=== PATIENT | male | born 1995 | race African-American/Black ===

== ENCOUNTER 2017-11-28 09:46 | Emergency (ER) | payer SELFPAY ==
[2017-11-28] MEDS ORDERED: ASPIRIN 81 MG TABLET, CHEWABLE PO ONE (09:57)
--- NOTE | 2017-11-28 09:59 | ER Document Report ---
ED Medical Screen (RME) - General Chief Complaint: Chest Wall Pain Stated Complaint: CHEST DISCOMFORT Time Seen by Provider: 11/28/17 09:56 Notes: RAPID MEDICAL EVALUATION DISCLOSURE I have seen this patient as part of a Rapid Medical Evaluation and, if applicable, placed any initially appropriate orders. The patient will be seen and fully evaluated, including a full history and physical exam, by a provider ( in Main ED or Fast Track) when a room becomes available. 22-year-old male here with complaints of midsternal chest pain radiating through to the back with lightheadedness ongoing for the past 1 week. The pain has been constant but waxing and waning. 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 It is not worse with breathing. He has not tried anything for the symptoms. He does have a history of hypertension however does not take any medicine for it. He does use tobacco and cocaine. States his last cocaine use was earlier this year. Denies previous history of IA. EXAM CTAB RRR No chest wall TTP TRAVEL OUTSIDE OF THE [place] IN LAST 30 DAYS: No - Related Data Allergies/Adverse Reactions: No Known Allergies Allergy (Unverified 11/28/17 09:48) Physical Exam - Vital signs Vitals: Temp Pulse Resp BP Pulse Ox 98.5 F 71 20 149/78 H 99 11/28/17 09:51 11/28/17 09:51 11/28/17 09:51 11/28/17 09:51 11/28/17 09:51 Course - Vital Signs Vital signs: Temp Pulse Resp BP Pulse Ox 98.5 F 71 20 149/78 H 99 11/28/17 09:51 11/28/17 09:51 11/28/17 09:51 11/28/17 09:51 11/28/17 09:51
[2017-11-28 10:32] LABS: ABSOLUTE BASOPHILS # (AUTO) 0.1 10^3/uL (0.0-0.2); ABSOLUTE EOSINOPHILS # (AUTO) 0.4 10^3/uL (0.0-0.6); ABSOLUTE LYMPHOCYTES (AUTO) 2.2 10^3/uL (0.5-4.7); ABSOLUTE MONOCYTES (AUTO) 1.1 10^3/uL (0.1-1.4); ABSOLUTE NEUT (AUTO) 7.6 10^3/uL (1.7-8.2); BASOPHILS % (AUTO) 0.5 % (0-2); EOSINOPHILS % (AUTO) 3.9 % (0-6); HEMATOCRIT 48.1 % (37.9-51.0); HEMOGLOBIN 16.3 g/dL (13.5-17.0); MEAN CORPUSCULAR HEMOGLOBIN 29.9 pg (27.0-33.4); MEAN CORPUSCULAR HGB CONC 33.9 g/dL (32.0-36.0); MEAN CORPUSCULAR VOLUME 88 fl (80-97); MONOCYTES % (AUTO) 9.5 % (3-13); PLATELET COUNT 357 10^3/uL (150-450); RED BLOOD COUNT 5.46 10^6/uL (4.35-5.55); SEGMENTED NEUTROPHILS % (AUTO) 67.1 % (42-78); TOTAL CELLS COUNTED % (AUTO) 100 %; WHITE BLOOD COUNT 11.4 10^3/uL (4.0-10.5)
[2017-11-28 10:53] LABS: ANION GAP 15 (5-19); BLOOD UREA NITROGEN 12 mg/dL (7-20); CALCIUM 9.7 mg/dL (8.4-10.2); CARBON DIOXIDE 24 mmol/L (22-30); CHLORIDE 106 mmol/L (98-107); GLUCOSE 86 mg/dL (75-110); POTASSIUM 4.3 mmol/L (3.6-5.0)
--- NOTE | 2017-11-28 10:59 | RADIOLOGY REPORT (SQ) ---
EXAM DESCRIPTION: CHEST 2 VIEWS COMPLETED DATE/TIME: 11/28/2017 10:19 am REASON FOR STUDY: CP lightheaded COMPARISON: None. EXAM PARAMETERS: NUMBER OF VIEWS: two views TECHNIQUE: Digital Frontal and Lateral radiographic views of the chest acquired. RADIATION DOSE: NA LIMITATIONS: none FINDINGS: LUNGS AND PLEURA: No opacities, masses or pneumothorax. No pleural effusion. MEDIASTINUM AND HILAR STRUCTURES: No masses or contour abnormalities. HEART AND VASCULAR STRUCTURES: Heart normal size. No evidence for failure. BONES: No acute findings. HARDWARE: None in the chest. OTHER: No other significant finding. IMPRESSION: NO ACUTE RADIOGRAPHIC FINDING IN THE CHEST. TECHNICAL DOCUMENTATION: JOB ID: [id number] [employer]- All Rights Reserved Reading location - IP/workstation name: [email or web address]
[2017-11-28 11:22] LABS: CREATINE KINASE 93 U/L (55-170)
--- NOTE | 2017-11-28 11:43 | ER Document Report ---
ED Cardiac <MARCIAL CASILLAS - Last Filed: 11/28/17 11:47> - General Mode of Arrival: Ambulatory Information source: Patient TRAVEL OUTSIDE OF THE [place] IN LAST 30 DAYS: No <BREEZY MCKOY - Last Filed: 11/28/17 14:19> - General Chief Complaint: Chest Wall Pain Stated Complaint: CHEST DISCOMFORT Time Seen by Provider: 11/28/17 09:56 Notes: 22-year-old male presenting to the emergency department today with complaints of 1 week of chest pain. 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 Patient states his pain seems to be exacerbated with increased work and when he "heats up". Patient does admit to drinking every other weekend, smoking marijuana including last night, snorting and smoking methamphetamine which he has not done since last month, and cocaine use which he states he has not done since last year. (BREEZY MCKOY) - Related Data Allergies/Adverse Reactions: No Known Allergies Allergy (Unverified 11/28/17 09:48) Past Medical History - General Information source: Patient - Social History Smoking Status: Current Some Day Smoker Chew tobacco use (# tins/day): No Frequency of alcohol use: Occasional Drug Abuse: Cocaine, Marijuana, Methamphetamine Lives with: Family Family History: Reviewed & Not Pertinent Patient has suicidal ideation: No Patient has homicidal ideation: No - Past Medical History Cardiac Medical History: Reports: Hx Hypertension Surgical Hx: Negative <BREEZY MCKOY - Last Filed: 11/28/17 14:19> Review of Systems - Review of Systems Constitutional: No symptoms reported EENT: No symptoms reported Cardiovascular: See HPI, Chest pain Respiratory: No symptoms reported Gastrointestinal: No symptoms reported Genitourinary: No symptoms reported Male Genitourinary: No symptoms reported Musculoskeletal: No symptoms reported Skin: No symptoms reported Hematologic/Lymphatic: No symptoms reported Neurological/Psychological: No symptoms reported -: Yes All other systems reviewed and negative <BREEZY MCKOY - Last Filed: 11/28/17 14:19> Physical Exam <MARCIAL CASILLAS - Last Filed: 11/28/17 11:47> <BREEZY MCKOY - Last Filed: 11/28/17 14:19> - Vital signs Vitals: Temp Pulse Resp BP Pulse Ox 98.5 F 71 20 149/78 H 99 11/28/17 09:51 11/28/17 09:51 11/28/17 09:51 11/28/17 09:51 11/28/17 09:51 - Notes Notes: Physical Exam: General: Alert, appears well. HEENT: Normocephalic. Atraumatic. PERRL. Extraocular movements intact. Oropharynx clear. Neck: Supple. Non-tender. Respiratory: No respiratory distress. Slight sternal tenderness with palpation. Clear and equal breath sounds bilaterally. Cardiovascular: Regular rate and rhythm. Abdominal: Obese. Non-tender. No distension. Normal Bowel Sounds. Back: Non-tender. No deformity or step off. Extremities: Moves all four extremities. Upper extremities: Normal inspection. Normal ROM. Lower extremities: Normal inspection. No edema. Normal ROM. Neurological: Normal cognition. AAOx4. Normal speech. Psychological: Normal affect. Normal Mood. Skin: Warm. Dry. Normal color. (BREEZY MCKOY) Course - Laboratory Result Diagrams: 11/28/17 10:09 11/28/17 10:09 <MARCIAL CASILLAS - Last Filed: 11/28/17 11:47> - Laboratory Result Diagrams: 11/28/17 10:09 11/28/17 10:09 <BREEZY MCKOY - Last Filed: 11/28/17 14:19> - Vital Signs Vital signs: Temp Pulse Resp BP Pulse Ox 97.1 F 71 20 136/85 H 98 11/28/17 12:05 11/28/17 09:51 11/28/17 12:02 11/28/17 12:02 11/28/17 12:02 - Laboratory Laboratory results interpreted by me: 11/28/17 10:09 WBC 11.4 H Discharge <MARCIAL CASILLAS - Last Filed: 11/28/17 11:47> <BREEZY MCKOY - Last Filed: 11/28/17 14:19> - Discharge Clinical Impression: Chest pain Qualifiers: Chest pain type: unspecified Qualified Code(s): R07.9 - Chest pain, unspecified High blood pressure Qualifiers: Hypertension type: essential hypertension Qualified Code(s): I10 - Essential ( primary) hypertension Condition: Stable Disposition: HOME, SELF-CARE Additional Instructions: Chest Pain of Unclear Cause The exact cause of your chest pain isn't clear. Fortunately, there is no evidence of a dangerous medical condition. Further testing may be required to find the source of the pain. Most often, we find that this pain is coming from the chest wall -- the muscles or rib joints in the chest. But chest pain can come from the lung and lung lining, the esophagus, the heart valves or heart lining, and even the stomach or gallbladder. Rest. Eat lightly until the pain is gone. We may prescribe medicine for pain and inflammation. You should call the physician immediately if the pain radiates to the shoulder, jaw or arms; if you start to run a fever or develop a cough; or if you develop shortness of breath, or other new or alarming symptoms. High Blood Pressure: When your blood pressure was taken today it was elevated. Pre-hypertension/Hypertension: The patient has been informed that they may have Hypertension based on a blood pressure reading in the emergency department. I recommend that the patient call a primary care physician of their choice this week to arrange follow up for further evaluation of possible pre- hypertension or Hypertension. Sometimes, stress or illness causes a temporary elevation of your blood pressure. We suggest that you get your blood pressure measured three more times during the next few days to see if this is more than a temporary abnormality. If your blood pressure is greater than 150/90 on each occasion, you must have treatment. Some simple things you can do to help are: If you have blood pressure medicine but aren't using it regularly, start taking it again. Get some aerobic exercise for at least 20 minutes on a daily basis. (See your doctor before beginning a new exercise program.) Eat a low-fat diet. Lose excess weight. Avoid salty foods and avoid adding salt to any of the foods you eat. Avoid diet pills, decongestants, "energizing" herbs, and other medicines that elevate blood pressure. If left untreated, hypertension greatly enhances your risk for developing heart disease and strokes. Please don't ignore this problem. Your EKG was totally normal. Your cardiac enzymes were undetectable. Your chest x-ray was normal. There is no evidence to suggest your chest discomfort is related to your heart or your lungs. You should follow-up with a primary care provider to treat your high blood pressure. You should get plenty of rest over the next few days and drink plenty of fluids. Take Tylenol and ibuprofen for pain if needed. Follow-up with a local medical doctor if not improving. RETURN TO THE EMERGENCY ROOM IF ANY NEW OR WORSENING SYMPTOMS. Forms: Return to Work Scribe Attestation: 11/28/17 11:46 I personally performed the services described in the documentation, reviewed and edited the documentation which was dictated to the scribe in my presence, and it accurately records my words and actions. (MARCIAL CASILLAS) Scribe Documentation - Scribe Written by Kayla:: Kayla Degroot, 11/28/2017 1419 acting as scribe for :: Vale <BREEZY MCKOY - Last Filed: 11/28/17 14:19>
[2017-11-28 12:06] VITALS: BP 136/85
--- NOTE | 2017-11-28 22:18 | EKG REPORT ---
SEVERITY:- NORMAL ECG - SINUS RHYTHM : Confirmed by: Faina Dasilva 28-Nov-2017 22:17:38
== END 2017-11-28 12:06 | disposition home or self-care (01) ==
LOC: ER 09:46
DX: R07.9 Chest pain, unspecified (principal); I10 Essential (primary) hypertension; F17.200 Nicotine dependence, unspecified, uncomplicated
CPT/HCPCS: 36415; 71046; 80048; 82550; 84484; 85025; 93005; 93010; 99285